=== PATIENT | female | born 1990 | race Two or more races ===

== ENCOUNTER 2023-12-28 12:20 | Outpatient (CLI) | payer OTHER | END 2023-12-28 12:21 | disposition home or self-care (01) | LOC: PRENATAL 12:20 | PROVIDERS: ATTEND Obstetrics & Gynecology Maternal & Fetal Medicine | DX: O35.9XX0 Maternal care for (suspected) fetal abnormality and damage, unspecified, not applicable or unspecified (principal); O35.3XX0 Maternal care for (suspected) damage to fetus from viral disease in mother, not applicable or unspecified; O44.02 Complete placenta previa NOS or without hemorrhage, second trimester; O34.219 Maternal care for unspecified type scar from previous cesarean delivery; O09.522 Supervision of elderly multigravida, second trimester; O99.012 Anemia complicating pregnancy, second trimester; Z3A.20 20 weeks gestation of pregnancy ==

== ENCOUNTER 2024-03-22 14:12 | Outpatient (CLI) | payer OTHER | END 2024-03-22 14:13 | disposition home or self-care (01) | LOC: PRENATAL 14:12 | PROVIDERS: ATTEND Obstetrics & Gynecology Maternal & Fetal Medicine | DX: O26.849 Uterine size-date discrepancy, unspecified trimester (principal); O36.8199 Decreased fetal movements, unspecified trimester, other fetus; O34.219 Maternal care for unspecified type scar from previous cesarean delivery; O09.529 Supervision of elderly multigravida, unspecified trimester; O99.019 Anemia complicating pregnancy, unspecified trimester; Z3A.33 33 weeks gestation of pregnancy ==